=== PATIENT | male | born 1970 | race Caucasian/White ===

== ENCOUNTER 2016-10-30 01:08 | Emergency (ER) | payer BC, OTHER ==
[~2016-10-30] VITALS: Ht 177.8 cm; Wt 88.5 kg
[2016-10-30 01:46] LABS: Basophils # (auto) 0 uL; Basophils % (auto) 0.3 % (0.0-2.0); Eosinophils # (auto) 0.1 uL; Eosinophils % (auto) 1.8 % (0.0-7.0); Hematocrit 45.4 % (41.0-53.0); Hemoglobin 14.9 g/dL (13.5-17.5); Lymphocytes # (auto) 2.2 uL; Lymphocytes % (auto) 28.5 % (10.0-50.0); Mean Corpuscular Hemoglobin 29.3 pg (28.0-32.0); Mean Corpuscular Hgb Conc. 32.7 g/dL (32.0-36.0); Mean Corpuscular Volume 89.6 fL (80.0-100.0); Monocytes # (auto) 0.6 uL; Monocytes % (auto) 7.9 % (0.0-12.0); Neutrophils # (auto) 4.7 uL; Neutrophils % (auto) 61.5 % (37.0-80.0); Platelet Count (auto) 236 10^3/uL (140-450); Red Cell Distribution Width 13.4 % (11.6-16.0); White Blood Cell 7.6 10^3/uL (4.4-10.8)
[2016-10-30 01:56] LABS: INR 1.02 (0.9-1.15); Partial Thromboplastin Time 26.6 sec (22.64-33.71); Prothrombin Time 10.5 sec (9.37-12.3)
[2016-10-30 02:07] LABS: Albumin 3.9 g/dL (3.4-5.0); Anion Gap 6 (5-15); Aspartate Aminotransferase 21 U/L (15-37); BUN/Creatinine Ratio 11.7; Blood Urea Nitrogen 12 mg/dL (7-18); Calcium 8.2 mg/dL (8.5-10.1); Carbon Dioxide 31 mmol/L (21-32); Chloride 105 mmol/L (98-107); GFR African American 100 mL/min; GFR Non-African American 82 mL/min; Glucose 97 mg/dL (74-106); Potassium 3.4 mmol/L (3.5-5.1); Sodium 142 mmol/L (136-145)
[2016-10-30 02:12] LABS: Alkaline Phosphatase 129 U/L (45-117); Bilirubin, Total 0.4 mg/dL (0.2-1.0); Total Protein 7.2 g/dL (6.4-8.2)
[2016-10-30 04:00] VITALS: BP 142/92
== END 2016-10-30 04:12 | disposition home or self-care (01) ==
LOC: EDBD 01:08 → ER 01:12
DX: I10 Essential (primary) hypertension (principal)
CPT/HCPCS: 36415; 80053; 84484; 85025; 85610; 85730